=== PATIENT | female | born 1960 | race Caucasian/White ===

== ENCOUNTER 2023-02-12 11:00 | Outpatient (RCR) | payer OTHER, SELFPAY | END 2023-03-14 11:52 | disposition home or self-care (01) | LOC: ANHDMC 11:00 | PROVIDERS: PCP Internal Medicine; Visit Provider Internal Medicine | DX: E11.9 Type 2 diabetes mellitus without complications (principal); Z71.89 Other specified counseling | CPT/HCPCS: G0108 ==

== ENCOUNTER 2023-11-05 09:04 | Day surgery (SDC) | payer OTHER, SELFPAY ==
[2023-10-10 10:05] VITALS: BMI 36.4
[2023-10-25 10:03] VITALS: BMI 36.3
--- NOTE | 2023-11-04 21:08 | PM.HPGS ---
History of Present Illness History of Present Illness Consent: Risks, benefits, and alternatives have been discussed and questions answered. Patient agrees to proceed with procedure. Chief complaint: Dysphagia, unspecified Narrative: Aurelia Rush is a 63 year old female with dysphagia. She has a sensation that solid food gets stuck or hesitates when she is swallowing. She having Chronic heartburn. Review of Systems Review of Systems: All systems reviewed & are unremarkable except as noted in HPI and below PMFSH Past Medical History Medical History Anemia Hyperlipidemia Psoriatic arthritis Social History Social History Smoking status: Never smoker Substance use type: does not use Living arrangements: with family Spiritual care concerns: No Meds Home Medications and Allergies Home Medications Medication Instructions Recorded Confirmed Type ascorbic acid (vitamin C) 500 mg 500 mg PO DAILY 10/25/23 11/05/23 History tablet cetirizine 10 mg tablet (Zyrtec) 10 mg PO DAILY 10/25/23 11/05/23 History cholecalciferol (vitamin D3) 25 25 mcg PO DAILY 10/25/23 11/05/23 History mcg (1,000 unit) tablet (Vitamin D3) multivitamin with minerals-folic 1 tablet PO DAILY 10/25/23 11/05/23 History acid 0.4 mg tablet omega-3 fatty acids-vitamin E 1 cap PO DAILY 10/25/23 11/05/23 History 1,000 mg capsule rosuvastatin 10 mg tablet 10 mg PO DAILY 10/25/23 11/05/23 History secukinumab 150 mg/mL subcutaneous 150 mg subcut EVERY OTHER DAY 10/25/23 11/05/23 History pen injector (Cosentyx Pen 300 mg/2 Pens () Allergies Allergy/AdvReac Type Severity Reaction Status Date / Time Sulfa (Sulfonamide Allergy Hives Verified 11/05/23 10:27 Antibiotics) Exam Const: General: alert Orientation/consciousness: patient oriented x3 Resp: Auscultation: clear to auscultation bilaterally Cardio: Rhythm: regular rhythm GI: GI Palp: Yes Soft to palpation and No Tenderness to palpation present (GI) Neuro: General: patient oriented x3 Assessment and Plan Assessment and plan (1) Dysphagia: Code(s): R13.10 - Dysphagia, unspecified Status: Acute Assessment and Plan: EGD with possible biopsy or dilatation or cautery.
--- NOTE | 2023-11-05 07:00 | P.PNAN_ITS ---
Anes - Initial Pre Proc Eval Procedure: Operation Date: 11/05/23 11:30 Proposed Procedures p Esophagogastroduodenoscopy - Kurtis Umaña MD Date/Time: 11/05/23 07:00 Surgeon: Kurtis Umaña MD Pre Op Diagnosis: Dysphagia, unspecified Patient Data Age: 63 Gender: F Height: 1.65 m Weight: 99 kg Allergies Allergy/AdvReac Type Severity Reaction Status Date / Time Sulfa (Sulfonamide Allergy Hives Verified 11/05/23 10:27 Antibiotics) Home Medications Medication Instructions Recorded Confirmed Type ascorbic acid (vitamin C) 500 mg 500 mg PO DAILY 10/25/23 11/05/23 History tablet cetirizine 10 mg tablet (Zyrtec) 10 mg PO DAILY 10/25/23 11/05/23 History cholecalciferol (vitamin D3) 25 25 mcg PO DAILY 10/25/23 11/05/23 History mcg (1,000 unit) tablet (Vitamin D3) multivitamin with minerals-folic 1 tablet PO DAILY 10/25/23 11/05/23 History acid 0.4 mg tablet omega-3 fatty acids-vitamin E 1 cap PO DAILY 10/25/23 11/05/23 History 1,000 mg capsule rosuvastatin 10 mg tablet 10 mg PO DAILY 10/25/23 11/05/23 History secukinumab 150 mg/mL subcutaneous 150 mg subcut EVERY OTHER DAY 10/25/23 11/05/23 History pen injector (Cosentyx Pen 300 mg/2 Pens () Patient hx anesthesia problems: none Family hx anesthesia problems: none Results Review: All pre-operative results and documents have been reviewed as part of the pre-op erative evaluation. [facility] Past Medical History Medical History Anemia Hyperlipidemia Psoriatic arthritis Social History Social History Smoking status: Never smoker Substance use type: does not use Living arrangements: with family Spiritual care concerns: No Anes - Eval Final PreProcedure Day of Procedure 11/05/23 07:00 Patient weight: obese Heart: regular rate and rhythm Lungs: clear to auscultation Airway: Mallampati scale class III Neurological: alert and oriented Last oral intake: >/= 8 hours ASA classification: II Emergent: no Anesthetic plan: proceed Anesthesia type and monitoring: general GIVS and standard monitoring Results Review: All pre-operative results and documents have been reviewed as part of the pre- operative evaluation. Informed Consent: The patient's anesthetic plan and its attendant risks and benefits were discussed with the patient/family/POA. Questions were solicited and answers provided to the satisfaction of the patient/family/POA.
[2023-11-05 10:28] VITALS: BP 164/82; PULSE 61; RESP 18; TEMP 37.2; O2SAT 100; BMI 35.9
[2023-11-05] MEDS: LACTATED RINGERS 1,000 ML 150 ML IV CONT (10:46)
[2023-11-05 11:35] VITALS: BP 119/61; PULSE 58; RESP 14; O2SAT 98
--- NOTE | 2023-11-05 11:38 | WPDANESPN ---
Anes - Prog Note Post-Op Date/Time: 11/05/23 11:38 Cardiovascular status: normal Respiratory status: normal Airway patency: baseline Mental status: baseline Post-Op hydration status: normal Vital Signs: Last Vital Signs Temp 37.2 C 11/05/23 10:28 Pulse 61 11/05/23 10:28 Resp 18 11/05/23 10:28 BP 164/82 H 11/05/23 10:28 Pulse Ox 100 11/05/23 10:28 O2 Del Method Room Air 11/05/23 10:28 Pain Score (VAS): 0 I/O: Intake & Output 11/04/23 11/05/23 11/05/23 23:59 07:59 15:59 Intake Total 100 Balance 100 Post-procedural complaints: none Patient Feedback: Patient satisfied with anesthetic care. Other Findings: Patient vital signs back to baseline. Patient denies nausea and vomiting. Patient's pain under control. Patient OK for discharge.
[2023-11-05 11:45] VITALS: BP 130/73; PULSE 54; RESP 16; O2SAT 98
[2023-11-05 11:55] VITALS: BP 142/81; PULSE 54; RESP 16; O2SAT 100
== END 2023-11-05 12:17 | disposition home or self-care (01) ==
PROVIDERS: PCP Internal Medicine; Visit Provider Internal Medicine Gastroenterology
PROC: 0DJ08ZZ Inspection of Upper Intestinal Tract, Via Natural or Artificial Opening Endoscopic (ICD-10-PCS; CPT 43235; principal; 2023-11-05 11:30)
DX: R13.19 Other dysphagia (principal); K22.2 Esophageal obstruction; K21.9 Gastro-esophageal reflux disease without esophagitis
CPT/HCPCS: 43249; 43239

== ENCOUNTER 2023-11-06 10:39 | Outpatient (NON) | payer OTHER, SELFPAY | END 2023-11-06 10:40 | disposition home or self-care (01) | LOC: ANHLAB 10:41 | PROVIDERS: PCP Internal Medicine; Visit Provider Internal Medicine Gastroenterology | DX: K21.00 Gastro-esophageal reflux disease with esophagitis, without bleeding (principal) | CPT/HCPCS: 88305 ==

== ENCOUNTER 2024-04-10 09:18 | Outpatient (RCR) | payer OTHER, SELFPAY ==
[2024-04-10 09:30] VITALS: BMI 36.3
[2024-04-10 09:35] VITALS: BMI 36.3
== END 2024-07-07 09:21 | disposition home or self-care (01) ==
LOC: ANHDMC 09:18
PROVIDERS: PCP Internal Medicine; Visit Provider Internal Medicine
DX: E11.9 Type 2 diabetes mellitus without complications (principal); Z71.89 Other specified counseling
CPT/HCPCS: 97802